=== PATIENT | male | born 1980 | race Two or more races ===

== ENCOUNTER 2022-01-27 07:32 | Outpatient (REF) | payer OTHER, SELFPAY ==
[2022-01-27 08:16] LABS: Binax Internal Control QC Valid; Binax Now Covid-19 Ag Negative (Negative)
== END 2022-01-27 07:33 | disposition home or self-care (01) ==
LOC: HO.HMGCLDS 07:32
PROVIDERS: Visit Provider Internal Medicine
DX: Z20.822 Contact with and (suspected) exposure to COVID-19 (principal)
CPT/HCPCS: 87811; C9803